=== PATIENT | female | born 1980 | race Caucasian/White ===

== ENCOUNTER → 2021-03-15 | Outpatient (CLI) | payer OTHER ==
--- NOTE | 2021-03-15 08:48 | RAD ---
US ABDOMEN LTD History: Elevated LFTs. Comparison: None. Technique: Sonographic examination of the right upper quadrant of the abdomen. Findings: Pancreas: Not well visualized due to body habitus and overlying shadowing bowel gas. Liver: The liver measures 25.9 cm. Liver echotexture is coarsened and diffusely increased. No focal hepatic lesions. Hepatopetal flow in the portal vein. Gallbladder: No gallstones, wall thickening or pericholecystic fluid. Sonographic Valentino's sign is re portedly negative. Bile ducts: The common duct is not visualized. No intrahepatic biliary ductal dilatation. Right kidney: 10.0 cm in length. No focal lesion, calculi or hydronephrosis. Aorta/IVC: Poorly visualized. No abnormalities identified. Other: No ascites. Impression: 1. Enlarged fatty liver. 2. Limited examination due to habitus and inability to breath-hold. Electronically signed by: Santos Rodriges MD (03/15/2021 8:45 AM) [facility]
== END ==
LOC: US 07:57
PROVIDERS: ATTEND Family Medicine
DX: K76.0 Fatty (change of) liver, not elsewhere classified (principal)
CPT/HCPCS: 76705